=== PATIENT | male | born 1945 | race African-American/Black ===

== ENCOUNTER → 2017-01-01 | Outpatient (CLI) | payer MEDICARE, OTHER | END | disposition home or self-care (01) | LOC: Rad HDHVI 08:56 | PROVIDERS: ATTEND Internal Medicine Cardiovascular Disease | DX: I35.2 Nonrheumatic aortic (valve) stenosis with insufficiency (principal) | CPT/HCPCS: 93306 ==

== ENCOUNTER → 2017-01-05 | Outpatient (CLI) | payer MEDICARE, OTHER ==
[~2017-01-05] VITALS: Ht 180.3 cm; Wt 85.7 kg
[~2017-01-05] MED LIST: ADENOSINE 72 MG in GIVE UN-DILUTED 0 ML IV ONE; ADENOSINE 90 MG/30 ML INJ IV ONE; cloNIDine HCL 0.1 MG TAB ONE
== END | disposition home or self-care (01) ==
LOC: Rad HDHVI 09:17
PROVIDERS: ATTEND Internal Medicine Cardiovascular Disease
DX: I10 Essential (primary) hypertension (principal); I35.0 Nonrheumatic aortic (valve) stenosis; I35.1 Nonrheumatic aortic (valve) insufficiency; E11.9 Type 2 diabetes mellitus without complications
CPT/HCPCS: 78452; 93005; 96374; 96375; A9500; J0153

== ENCOUNTER → 2017-04-27 | Outpatient (CLI) | payer MEDICARE, OTHER ==
[~2017-04-27] MED LIST changes: -ADENOSINE 72 MG in GIVE UN-DILUTED 0 ML IV ONE; -ADENOSINE 90 MG/30 ML INJ IV ONE; +ATEN-60 PO; +ATOR10TA52 PO; +CINA30TA2 PO; +CLOP75TA28 PO; +DOXA2TAB PO; +ISOSTAB OR; +LISI40TA PO; +NIFE90TA30 PO; +SEVE800T10 PO; +SEVE800T8 PO; -cloNIDine HCL 0.1 MG TAB ONE
== END | disposition home or self-care (01) ==
LOC: Rad HDHVI 13:36
PROVIDERS: ATTEND Internal Medicine Cardiovascular Disease
DX: I10 Essential (primary) hypertension (principal)
CPT/HCPCS: 93306

== ENCOUNTER → 2017-05-09 | Outpatient (CLI) | payer MEDICARE, OTHER ==
[~2017-05-09] MED LIST changes: +IOHEXOL 350 MG/ML 100ML IJ ONE; +cloNIDine HCL 0.1 MG TAB ONE; +cloNIDine HCL 0.1 MG TAB PO ONE; +diphenhdrAMINE HCL 50 MG/1 ML VL IV ONE; +diphenhdrAMINE HCL 50 MG/1 ML VL ONE; +methylPREDNISolone SOD SUCC 125 MG/2 ML VL IV ONE; +methylPREDNISolone SOD SUCC 125 MG/2 ML VL ONE
[2017-05-09 10:05] VITALS: BP 214/76
[2017-05-09 13:22] VITALS: BP 201/75
== END | disposition home or self-care (01) ==
LOC: Rad HDHVI 09:04
PROVIDERS: ATTEND Internal Medicine Cardiovascular Disease
DX: K40.90 Unilateral inguinal hernia, without obstruction or gangrene, not specified as recurrent (principal); I70.8 Atherosclerosis of other arteries; I51.7 Cardiomegaly; I73.9 Peripheral vascular disease, unspecified
CPT/HCPCS: 75635; 82565; 96374; 96375; G0463; J1200; J2930; Q9967

== ENCOUNTER → 2017-06-18 | Outpatient (CLI) | payer MEDICARE, OTHER ==
[~2017-06-18] MED LIST changes: -IOHEXOL 350 MG/ML 100ML IJ ONE; -cloNIDine HCL 0.1 MG TAB ONE; -cloNIDine HCL 0.1 MG TAB PO ONE; -diphenhdrAMINE HCL 50 MG/1 ML VL IV ONE; -diphenhdrAMINE HCL 50 MG/1 ML VL ONE; -methylPREDNISolone SOD SUCC 125 MG/2 ML VL IV ONE; -methylPREDNISolone SOD SUCC 125 MG/2 ML VL ONE
[2017-06-18 10:25] VITALS: BP 219/76
[2017-06-18 11:25] VITALS: BP 137/74
[2017-06-18 12:25] LABS: Basophils # (auto) 0 uL; Eosinophils # (auto) 0.2 uL; Eosinophils % (auto) 3.9 % (0.0-7.0); Hematocrit 35.9 % (41.0-53.0); Hemoglobin 11.7 g/dL (13.5-17.5); Lymphocytes # (auto) 0.7 uL; Lymphocytes % (auto) 17.9 % (10.0-50.0); Mean Corpuscular Hemoglobin 30.2 pg (28.0-32.0); Mean Corpuscular Hgb Conc. 32.5 g/dL (32.0-36.0); Mean Corpuscular Volume 92.9 fL (80.0-100.0); Monocytes # (auto) 0.3 uL; Monocytes % (auto) 8.3 % (0.0-12.0); Neutrophils # (auto) 2.8 uL; Neutrophils % (auto) 68.9 % (37.0-80.0); Platelet Count (auto) 191 10^3/uL (140-450); Red Blood Cells 3.87 10^6/uL (4.5-5.90); Red Cell Distribution Width 17.3 % (11.8-14.3); White Blood Cell 4.1 10^3/uL (4.4-10.8)
[2017-06-18 12:37] LABS: Potassium 5.3 mmol/L (3.5-5.1)
[2017-06-18 12:44] LABS: INR 1.03 (0.9-1.15); Partial Thromboplastin Time 28.5 sec (22.64-33.71); Prothrombin Time 11.2 sec (9.37-12.3)
== END | disposition home or self-care (01) ==
LOC: Rad HDHVI 09:58
PROVIDERS: ATTEND Internal Medicine Cardiovascular Disease
DX: Z01.812 Encounter for preprocedural laboratory examination (principal); D64.9 Anemia, unspecified; R79.1 Abnormal coagulation profile; I10 Essential (primary) hypertension
CPT/HCPCS: 36415; 71046; 80048; 85025; 85610; 85730; 93005; G0463

== ENCOUNTER 2017-06-21 08:29 | Inpatient (IN) | payer MEDICARE, OTHER ==
[~2017-06-21] VITALS: Ht 180.3 cm; Wt 62.0 kg
[~2017-06-21 08:29] MED LIST changes: -CLOP75TA28 PO; -ISOSTAB OR; -SEVE800T8 PO
[2017-06-21] MEDS ORDERED: ISOSTAB OR (08:42)
[2017-06-21] MEDS ORDERED: LIDOCAINE 2%HCL (LOCAL ANESTH.) INJ 20ML MDV ONE (09:27)
[2017-06-21] MEDS ORDERED: IOHEXOL 350 MG/ML 100ML IJ ONE (09:27)
[2017-06-21] MEDS ORDERED: ANGIOMAX 250 MG VIAL IV ONE (09:39)
[2017-06-21] MEDS ORDERED: NITROGLYCERIN 5MG/ML 10ML VIAL IV ONE (09:40)
[2017-06-21] MEDS ORDERED: SODIUM CHL 0.9% 50 ML ONE ×2 (09:40→09:43)
[2017-06-21] MEDS ORDERED: MIDAZOLAM HCL 1MG/1ML-2 ML VIAL ONE (09:40)
[2017-06-21] MEDS ORDERED: fentaNYL CITRATE 100 MCG/2 ML VL ONE (09:40)
[2017-06-21] MEDS ORDERED: diphenhdrAMINE HCL 50 MG/1 ML VL ONE ×2 (09:43→09:49)
[2017-06-21] MEDS ORDERED: methylPREDNISolone SOD SUCC 125 MG/2 ML VL ONE (09:43)
[2017-06-21] MEDS ORDERED: IODIXANOL 320MG/ML 100ML BTL IV ONE (09:54)
[2017-06-21] MEDS ORDERED: hydrALAZINE HCL 20 MG/ML VL ONE (10:35)
[2017-06-21] MEDS ORDERED: EPTIFIBATIDE INJ (2MG/ML) 10ML VIAL IV ONE (10:38)
[2017-06-21] MEDS ORDERED: TICAGRELOR 90 MG TAB ONE (11:00)
[2017-06-21] MEDS ORDERED: TICAGRELOR 90 MG TAB PO ONE (11:30)
[2017-06-21] MEDS ORDERED: DOXAZOSIN MESYL 2 MG TAB PO ONE (11:45)
[2017-06-21] MEDS ORDERED: MORPHINE SULFATE 4 MG/ML SYR/VIAL IV PRN (12:45)
[2017-06-21] MEDS ORDERED: NITROGLYCERIN 0.4 MG SL TAB SL PRN (12:45)
[2017-06-21] MEDS ORDERED: ONDANSETRON HCL 4 MG/2 ML VIAL IV PRN (12:45)
[2017-06-21] MEDS ORDERED: MORPHINE SULF INJ 2 MG/ML SYRINGE 1ML IV PRN (12:45)
[2017-06-21] MEDS ORDERED: LORazepam 0.5 MG TAB PO PRN (12:45)
[2017-06-21] MEDS: ISOSORBIDE DINITRATE 10 MG TAB PO SCH (13:30)
[2017-06-21] MEDS: hydrALAZINE HCL 25 MG TAB PO SCH ×2 (13:49→23:09)
[2017-06-21] MEDS: ACETAMINOPHEN 500 MG TAB PO PRN ×3 (13:51→16:02)
[2017-06-21] MEDS: SODIUM CHLOR 0.9% PF (SALINE LOCK) 10ML VIAL IV SCH ×2 (14:05→22:00)
[2017-06-21] MEDS ORDERED: ISOSORBIDE DINITRATE 10 MG TAB PO ONE (14:15)
[2017-06-21] MEDS: HYDROcodone-ACET 5/325MG TAB PO PRN ×2 (14:41→15:59)
[2017-06-21] MEDS ORDERED: cloNIDine HCL 0.1 MG TAB ONE (15:45)
[2017-06-21] MEDS ORDERED: cloNIDine HCL 0.1 MG TAB PO ONE (16:00)
[2017-06-21] MEDS: CALCIUM ACETATE 667 MG CAP PO SCH (17:55)
[2017-06-21] MEDS ORDERED: ISOSORBIDE DINITRATE 10 MG TAB PO SCH (18:00)
[2017-06-21] MEDS ORDERED: SEVE800T8 PO (18:28)
[2017-06-21] MEDS ORDERED: CINA30TA2 PO (18:28)
[2017-06-21 21:58] VITALS: BP 197/78
[2017-06-21] MEDS ORDERED: ATORVASTATIN 20 MG TAB PO SCH (22:00)
[2017-06-21] MEDS: DOXAZOSIN MESYL 2 MG TAB PO SCH (23:08)
[2017-06-21] MEDS: NIFEdipine ER 30 MG TAB PO SCH (23:10)
[2017-06-21] MEDS: TICAGRELOR 90 MG TAB PO SCH (23:30)
[2017-06-22] MEDS: HYDROcodone-ACET 5/325MG TAB PO PRN (00:34)
[2017-06-22 05:05] VITALS: BP 171/68
[2017-06-22] MEDS: hydrALAZINE HCL 25 MG TAB PO SCH ×2 (06:08→14:00)
[2017-06-22] MEDS: ISOSORBIDE DINITRATE 10 MG TAB PO SCH ×2 (06:14→12:57)
[2017-06-22] MEDS: SODIUM CHLOR 0.9% PF (SALINE LOCK) 10ML VIAL IV SCH ×2 (06:16→14:00)
[2017-06-22 08:00] VITALS: BP 130/55
[2017-06-22] MEDS: CALCIUM ACETATE 667 MG CAP PO SCH ×2 (08:21→12:56)
[2017-06-22 08:28] VITALS: BP 130/55
[2017-06-22] MEDS: DOXAZOSIN MESYL 2 MG TAB PO SCH (09:46)
[2017-06-22] MEDS: NIFEdipine ER 30 MG TAB PO SCH (09:47)
[2017-06-22] MEDS ORDERED: LISINOPRIL 20 MG TAB PO SCH (10:00)
[2017-06-22] MEDS ORDERED: METOPROLOL SUCCINATE XL 50 MG TAB PO SCH (10:00)
[2017-06-22 11:46] VITALS: BP 151/66
[2017-06-22 12:01] VITALS: BP 130/55
[2017-06-22] MEDS: TICAGRELOR 90 MG TAB PO SCH (12:55)
== END 2017-06-22 15:00 | disposition home or self-care (01) | DRG 270 ==
LOC: CATH 08:29 → TELE-EAST 08:30
PROVIDERS: ADMIT Internal Medicine Cardiovascular Disease; ATTEND Internal Medicine Cardiovascular Disease
PROC: 047T3ZZ Dilation of Right Peroneal Artery, Percutaneous Approach (ICD-10-PCS; principal; 2017-06-21)
PROC: 3E053PZ Introduction of Platelet Inhibitor into Peripheral Artery, Percutaneous Approach (ICD-10-PCS; 2017-06-21)
PROC: 04CT3ZZ Extirpation of Matter from Right Peroneal Artery, Percutaneous Approach (ICD-10-PCS; 2017-06-21)
PROC: B41G1ZZ Fluoroscopy of Left Lower Extremity Arteries using Low Osmolar Contrast (ICD-10-PCS; 2017-06-21)
PROC: B41F1ZZ Fluoroscopy of Right Lower Extremity Arteries using Low Osmolar Contrast (ICD-10-PCS; 2017-06-21)
DX: I74.3 Embolism and thrombosis of arteries of the lower extremities (principal); N18.6 End stage renal disease; I13.2 Hypertensive heart and chronic kidney disease with heart failure and with stage 5 chronic kidney disease, or end stage renal disease; I50.30 Unspecified diastolic (congestive) heart failure; I70.201 Unspecified atherosclerosis of native arteries of extremities, right leg; K40.90 Unilateral inguinal hernia, without obstruction or gangrene, not specified as recurrent; Z99.2 Dependence on renal dialysis
CPT/HCPCS: 36415; 37229; 71046; 75716; 80048; 82962; 85025; 85610; 85730; 93005; 96373; 99152; 99153; C1769; G0463; J2250; J3490; Q9967

== ENCOUNTER 2017-06-27 18:03 | Inpatient (IN) | payer MEDICARE, OTHER ==
[~2017-06-27] VITALS: Ht 180.3 cm; Wt 74.6 kg
[~2017-06-27 18:03] MED LIST changes: +ISOSTAB OR; -SEVE800T10 PO; +SEVE800T8 PO
[2017-06-27] MEDS ORDERED: ENOXAPARIN SOD 100 MG/1 ML SYRINGE SC ONE (20:15)
[2017-06-27 21:13] LABS: Basophils # (auto) 0 uL; Basophils % (auto) 0.6 % (0.0-2.0); Eosinophils # (auto) 0.4 uL; Eosinophils % (auto) 7.5 % (0.0-7.0); Hematocrit 33.2 % (41.0-53.0); Hemoglobin 10.8 g/dL (13.5-17.5); Lymphocytes # (auto) 0.9 uL; Lymphocytes % (auto) 15.7 % (10.0-50.0); Mean Corpuscular Hemoglobin 30.1 pg (28.0-32.0); Mean Corpuscular Hgb Conc. 32.5 g/dL (32.0-36.0); Mean Corpuscular Volume 92.6 fL (80.0-100.0); Monocytes # (auto) 0.6 uL; Neutrophils # (auto) 3.8 uL; Neutrophils % (auto) 66.2 % (37.0-80.0); Platelet Count (auto) 171 10^3/uL (140-450); Red Blood Cells 3.58 10^6/uL (4.5-5.90); Red Cell Distribution Width 16.1 % (11.8-14.3); White Blood Cell 5.7 10^3/uL (4.4-10.8)
[2017-06-27 21:18] LABS: INR 0.98 (0.9-1.15); Partial Thromboplastin Time 28.5 sec (22.64-33.71); Prothrombin Time 10.7 sec (9.37-12.3)
[2017-06-27 21:26] LABS: Potassium 4.4 mmol/L (3.5-5.1)
[2017-06-27 21:34] LABS: BUN/Creatinine Ratio 6.1; Calcium 9.3 mg/dL (8.5-10.1)
[2017-06-27 21:35] LABS: Albumin 3.5 g/dL (3.4-5.0); Bilirubin, Total 0.4 mg/dL (0.2-1.0); Total Protein 7.4 g/dL (6.4-8.2)
[2017-06-27 22:07] LABS: Magnesium 3.1 mg/dL (1.6-2.6)
[2017-06-27] MEDS ORDERED: TEMAZEPAM 15 MG CAP PO PRN (22:15)
[2017-06-27] MEDS ORDERED: ONDANSETRON HCL 4 MG/2 ML VIAL IV PRN (22:15)
[2017-06-27] MEDS ORDERED: ACETAMINOPHEN 325 MG TAB PO PRN (22:15)
[2017-06-27] MEDS ORDERED: NITROGLYCERIN 0.4 MG SL TAB SL PRN (22:15)
[2017-06-27] MEDS ORDERED: HYDROcodone-ACET 5/325MG TAB PO PRN (22:15)
[2017-06-27] MEDS ORDERED: MORPHINE SULFATE 4 MG/ML SYR/VIAL IV PRN (22:15)
[2017-06-27 23:00] VITALS: BP 146/65
[2017-06-28] MEDS ORDERED: CLOP75TA28 PO (00:25)
[2017-06-28 01:23] LABS: Urine Bacteria FEW /hpf (None Seen); Urine Blood Negative /uL (Negative); Urine Specific Gravity 1.014 (1.001-1.035); Urine WBC 2 /hpf (0 - 3)
[2017-06-28] MEDS: cloNIDine HCL 0.1 MG TAB PO PRN ×2 (05:11→14:40)
[2017-06-28 05:49] VITALS: BP 161/73
[2017-06-28 05:56] LABS: Basophils # (auto) 0 uL; Basophils % (auto) 0.8 % (0.0-2.0); Eosinophils # (auto) 0.3 uL; Eosinophils % (auto) 8.2 % (0.0-7.0); Hematocrit 31.1 % (41.0-53.0); Hemoglobin 10.3 g/dL (13.5-17.5); Lymphocytes # (auto) 0.7 uL; Lymphocytes % (auto) 16.6 % (10.0-50.0); Mean Corpuscular Hemoglobin 30.6 pg (28.0-32.0); Mean Corpuscular Volume 92.5 fL (80.0-100.0); Monocytes # (auto) 0.4 uL; Monocytes % (auto) 9.1 % (0.0-12.0); Neutrophils # (auto) 2.8 uL; Neutrophils % (auto) 65.3 % (37.0-80.0); Platelet Count (auto) 164 10^3/uL (140-450); Red Blood Cells 3.37 10^6/uL (4.5-5.90); Red Cell Distribution Width 15.9 % (11.8-14.3); White Blood Cell 4.2 10^3/uL (4.4-10.8)
[2017-06-28 06:37] LABS: Albumin 3.2 g/dL (3.4-5.0); BUN/Creatinine Ratio 6.2; Bilirubin, Total 0.5 mg/dL (0.2-1.0); Calcium 8.7 mg/dL (8.5-10.1); Potassium 4.2 mmol/L (3.5-5.1); Total Protein 6.7 g/dL (6.4-8.2)
[2017-06-28] MEDS: SEVELAMER 800 MG TAB PO SCH ×3 (08:48→18:00)
[2017-06-28 09:00] VITALS: BP 171/63
[2017-06-28] MEDS: PANTOPRAZOLE 40 MG TAB PO SCH (10:00)
[2017-06-28] MEDS: LISINOPRIL 20 MG TAB PO SCH (10:00)
[2017-06-28] MEDS: DOXAZOSIN MESYL 2 MG TAB PO SCH ×2 (10:00→22:18)
[2017-06-28 12:00] VITALS: BP 191/62
[2017-06-28] MEDS ORDERED: ISOSTAB OR (15:30)
[2017-06-28] MEDS ORDERED: hydrALAZINE HCL 25 MG TAB PO ONE (16:30)
[2017-06-28] MEDS ORDERED: ISOSORBIDE DINITRATE 10 MG TAB PO ONE (16:30)
[2017-06-28] MEDS ORDERED: ENOXAPARIN SOD 100 MG/1 ML SYRINGE SC SCH (20:30)
[2017-06-28] MEDS: ATORVASTATIN 20 MG TAB PO SCH ×2 (22:00→22:19)
[2017-06-28] MEDS: hydrALAZINE HCL 25 MG TAB PO SCH (22:18)
[2017-06-28] MEDS: ISOSORBIDE DINITRATE 10 MG TAB PO SCH (22:19)
[2017-06-28 23:06] VITALS: BP 146/67
[2017-06-29 04:29] VITALS: BP 128/76
[2017-06-29] MEDS ORDERED: ATORVASTATIN 20 MG TAB PO SCH (06:00)
[2017-06-29] MEDS: SEVELAMER 800 MG TAB PO SCH (07:48)
[2017-06-29 09:00] VITALS: BP 208/76
[2017-06-29] MEDS: PANTOPRAZOLE 40 MG TAB PO SCH (09:44)
[2017-06-29] MEDS: DOXAZOSIN MESYL 2 MG TAB PO SCH (09:44)
[2017-06-29] MEDS: ISOSORBIDE DINITRATE 10 MG TAB PO SCH (09:44)
[2017-06-29] MEDS: LISINOPRIL 20 MG TAB PO SCH (09:45)
[2017-06-29] MEDS: hydrALAZINE HCL 25 MG TAB PO SCH (09:45)
[2017-06-29 10:58] VITALS: BP 166/64
[2017-06-29] MEDS: cloNIDine HCL 0.1 MG TAB PO PRN (11:02)
[2017-06-29 11:35] VITALS: BP 158/72
== END 2017-06-29 11:50 | disposition home or self-care (01) | DRG 299 ==
LOC: ER 18:06 → TELE 18:07 → TELE-WESTW 23:16
PROVIDERS: ADMIT Nurse Practitioner; ATTEND Internal Medicine Cardiovascular Disease
PROC: 5A1D70Z Performance of Urinary Filtration, Intermittent, Less than 6 Hours Per Day (ICD-10-PCS; principal; 2017-06-28)
DX: I82.412 Acute embolism and thrombosis of left femoral vein (principal); N18.6 End stage renal disease; I12.0 Hypertensive chronic kidney disease with stage 5 chronic kidney disease or end stage renal disease; D63.8 Anemia in other chronic diseases classified elsewhere; I73.9 Peripheral vascular disease, unspecified; Z82.49 Family history of ischemic heart disease and other diseases of the circulatory system; Z83.3 Family history of diabetes mellitus; Z85.46 Personal history of malignant neoplasm of prostate; Z85.528 Personal history of other malignant neoplasm of kidney; Z99.2 Dependence on renal dialysis; Z79.01 Long term (current) use of anticoagulants; Z88.8 Allergy status to other drugs, medicaments and biological substances; Z88.6 Allergy status to analgesic agent; Z88.0 Allergy status to penicillin; Z91.013 Allergy to seafood
CPT/HCPCS: 36415; 71045; 80053; 81001; 83735; 84484; 85025; 85379; 85610; 85730; 87081; 90935; 93971; 94761; 96372

== ENCOUNTER → 2017-07-04 | Outpatient (CLI) | payer MEDICARE, OTHER ==
[~2017-07-04] MED LIST changes: +CLOP75TA28 PO
== END | disposition home or self-care (01) ==
LOC: Rad HDHVI 10:05
PROVIDERS: ATTEND Internal Medicine Cardiovascular Disease
DX: I82.812 Embolism and thrombosis of superficial veins of left lower extremity (principal); I12.0 Hypertensive chronic kidney disease with stage 5 chronic kidney disease or end stage renal disease; N18.6 End stage renal disease; Z79.01 Long term (current) use of anticoagulants; Z85.46 Personal history of malignant neoplasm of prostate
CPT/HCPCS: 93970

== ENCOUNTER → 2017-12-05 | Outpatient (CLI) | payer MEDICARE, OTHER | END | disposition home or self-care (01) | LOC: Rad HDHVI 13:55 | PROVIDERS: ATTEND Internal Medicine Cardiovascular Disease | DX: I82.409 Acute embolism and thrombosis of unspecified deep veins of unspecified lower extremity (principal) | CPT/HCPCS: 93971 ==

== ENCOUNTER → 2018-07-01 | Outpatient (CLI) | payer MEDICARE, OTHER | END | disposition home or self-care (01) | LOC: Rad HDHVI 09:32 | PROVIDERS: ATTEND Internal Medicine Cardiovascular Disease | DX: M16.11 Unilateral primary osteoarthritis, right hip (principal); M48.07 Spinal stenosis, lumbosacral region; M25.752 Osteophyte, left hip; M25.751 Osteophyte, right hip; M48.10 Ankylosing hyperostosis [Forestier], site unspecified; Q76.49 Other congenital malformations of spine, not associated with scoliosis | CPT/HCPCS: 72131; 72192 ==

== ENCOUNTER → 2018-08-12 | Outpatient (CLI) | payer MEDICARE, OTHER ==
[~2018-08-12] VITALS: Ht 180.3 cm; Wt 83.9 kg
[~2018-08-12] MED LIST changes: +ADENOSINE 70 MG in GIVE UN-DILUTED 0 ML IV ONE; +ADENOSINE 90 MG/30 ML INJ IV ONE
== END | disposition home or self-care (01) ==
LOC: Rad HDHVI 07:40
PROVIDERS: ATTEND Internal Medicine Cardiovascular Disease
DX: R07.9 Chest pain, unspecified (principal); R06.02 Shortness of breath
CPT/HCPCS: 78452; 93005; 96374; 96375; A9500; J0153

== ENCOUNTER 2018-10-22 05:59 | Inpatient (IN) | payer MEDICARE, OTHER ==
[2018-10-18 12:35] LABS: INR 0.98 (0.9-1.15); Partial Thromboplastin Time 21.8 sec (23.64-32.05)
[2018-10-18 12:37] LABS: Urine Bacteria FEW /hpf (None Seen); Urine Blood Negative /uL (Negative); Urine Specific Gravity 1.013 (1.001-1.035); Urine WBC 4 /hpf (0 - 3)
[2018-10-18 12:43] LABS: Basophils # (auto) 0.1 uL; Basophils % (auto) 1.3 % (0.0-2.0); Eosinophils # (auto) 0.1 uL; Eosinophils % (auto) 2.8 % (0.0-7.0); Hematocrit 27.2 % (41.0-53.0); Hemoglobin 9.1 g/dL (13.5-17.5); Lymphocytes # (auto) 0.9 uL; Lymphocytes % (auto) 21.1 % (10.0-50.0); Mean Corpuscular Hemoglobin 30.8 pg (28.0-32.0); Mean Corpuscular Hgb Conc. 33.5 g/dL (32.0-36.0); Mean Corpuscular Volume 91.9 fL (80.0-100.0); Monocytes # (auto) 0.5 uL; Monocytes % (auto) 12.6 % (0.0-12.0); Neutrophils # (auto) 2.7 uL; Neutrophils % (auto) 62.2 % (37.0-80.0); Nucleated Red Blood Cells % 0.1 %; Platelet Count (auto) 181 10^3/uL (140-450); Red Blood Cells 2.96 10^6/uL (4.5-5.90); Red Cell Distribution Width 16.7 % (11.8-14.3); White Blood Cell 4.3 10^3/uL (4.4-10.8)
[2018-10-18 13:15] LABS: Potassium 4.7 mmol/L (3.5-5.1)
[2018-10-18 13:31] LABS: Albumin 3.6 g/dL (3.4-5.0); BUN/Creatinine Ratio 9.3; Bilirubin, Total 0.5 mg/dL (0.2-1.0); Calcium 9.2 mg/dL (8.5-10.1); Total Protein 7.7 g/dL (6.4-8.2)
[~2018-10-22] VITALS: Ht 180.3 cm; Wt 87.3 kg
[~2018-10-22 05:59] MED LIST changes: -ADENOSINE 70 MG in GIVE UN-DILUTED 0 ML IV ONE; -ADENOSINE 90 MG/30 ML INJ IV ONE; -ATEN-60 PO; -CINA30TA2 PO; -CLOP75TA28 PO; +FURO40TA4 PO; +HYDR50TA15 PO; -LISI40TA PO
[2018-10-22] MEDS ORDERED: CLINDAMYCIN 600MG IV 50 ML IV ONE (07:08)
[2018-10-22] MEDS ORDERED: LIDOCAINE 1% HCL (LOCAL ANESTH.) INJ 20ML MDV ONE (07:14)
[2018-10-22] MEDS ORDERED: SUCCINYLCHOLINE CHLORIDE 20 MG/ML 10ML VIAL IV ONE (07:15)
[2018-10-22] MEDS ORDERED: MIDAZOLAM HCL 1MG/1ML-2 ML VIAL ONE (07:28)
[2018-10-22] MEDS ORDERED: ETOMIDATE (2MG/ML) 20ML VIAL IV ONE (07:29)
[2018-10-22] MEDS ORDERED: ROCURONIUM 10MG/ML 10ML VIAL IV ONE (07:29)
[2018-10-22] MEDS ORDERED: METOCLOPRAMIDE HCL 5MG/ml INJ 2ml VIAL ONE (07:33)
[2018-10-22] MEDS ORDERED: fentaNYL CITRATE 100 MCG/2 ML VL ONE (07:42)
[2018-10-22] MEDS ORDERED: NALOXONE HCL 0.4 MG/ML VIAL IV PRN (08:00)
[2018-10-22] MEDS ORDERED: ONDANSETRON HCL 4 MG/2 ML VIAL IV ONE (08:00)
[2018-10-22] MEDS ORDERED: ACCU-CHEK COMFORT CURVE STRIP VI ONE (08:00)
[2018-10-22] MEDS ORDERED: ePHEDrine SULFATE 50 MG/ML AMP ONE (09:25)
[2018-10-22] MEDS ORDERED: SODIUM CHLORIDE LOCK 10 ML ONE (09:25)
[2018-10-22] MEDS ORDERED: GLYCOPYRROLATE 0.2 MG/ML 1ML VIAL ONE (11:05)
[2018-10-22] MEDS ORDERED: NEOSTIGMINE 1 MG/ML INJ (10mg/10ML VIAL) ONE (11:05)
[2018-10-22] MEDS ORDERED: LACTATED RINGER'S 1,000 ML IV SCH (12:03)
[2018-10-22] MEDS: HYDROmorphone HCL 2 MG/ML VL IV PRN ×9 (12:06→21:34)
[2018-10-22] MEDS ORDERED: MORPHINE SULF INJ 2 MG/ML SYRINGE 1ML IV PRN (12:15)
[2018-10-22] MEDS ORDERED: NITROGLYCERIN 0.4 MG SL TAB SL PRN (12:15)
[2018-10-22] MEDS ORDERED: ACETAMINOPHEN 325 MG TAB PO PRN (12:15)
--- NOTE | 2018-10-22 13:10 | NUR ---
Telemetry admit from [facility] BABATUNDETHANIA Howell admitted to Telemetry unit after SBAR received. Patient oriented to TIFFANY VICENTE, RN primary RN, unit, room 271A, bed, and unit policies regarding patient care and visiting hours. Patient now on continuous telemetry monitoring, tele box # 19 and telemetry reading on arrival to unit is sinus rhythm 89. Patient placed on bedside oxygen 2 lpm via nasal cannula, weighed by bedscale and encouraged to call if they need something. All questions and concerns addressed, patient verbalized understanding. Bed in low and locked position, rails up x2, no-slip socks on. Pulses palpable to bilateral dorsalis pedis, incision to left hip clean dry intact. Patient aware of strict flexion and internal rotation precautions. Verbalizes understanding.
[2018-10-22] MEDS: SODIUM CHLOR 0.9% PF (SALINE LOCK) 10ML VIAL/SYR IV SCH ×2 (14:31→22:00)
[2018-10-22 14:48] VITALS: BP 130/58
[2018-10-22 17:00] VITALS: BP_SYST 114; BP_SYST 143; BP_DIAS 51; BP_DIAS 62
[2018-10-22] MEDS: SEVELAMER 800 MG TAB PO SCH (18:19)
[2018-10-22 19:48] LABS: BUN/Creatinine Ratio 8.1; Calcium 8.6 mg/dL (8.5-10.1); Potassium 5.1 mmol/L (3.5-5.1)
--- NOTE | 2018-10-22 20:00 | NUR ---
Opening Shift Note Assumed care of patient, awake and alert. No S/S of distress/SOB or pain. Instructed on POC and to call for assist PRN, will continue to monitor for changes Q1hr and PRN.Left hip dressing with old blood stained noted.
[2018-10-22] MEDS: DOCUSATE SOD 100 MG CAP PO SCH (21:21)
[2018-10-22] MEDS: hydrALAZINE HCL 25 MG TAB PO SCH (21:21)
[2018-10-22] MEDS: DOXAZOSIN MESYL 2 MG TAB PO SCH (21:22)
[2018-10-22 22:00] VITALS: BP 156/74
[2018-10-23] MEDS: HYDROmorphone HCL 2 MG/ML VL IV PRN ×7 (00:45→22:12)
[2018-10-23 04:47] VITALS: BP 119/62
[2018-10-23] MEDS: hydrALAZINE HCL 25 MG TAB PO SCH ×3 (05:35→22:11)
[2018-10-23] MEDS: SODIUM CHLOR 0.9% PF (SALINE LOCK) 10ML VIAL/SYR IV SCH ×3 (05:35→22:12)
[2018-10-23 06:04] LABS: Hematocrit 23.4 % (41.0-53.0)
--- NOTE | 2018-10-23 07:07 | NUR ---
Report given to Eugenia Ireland , patient is resting awaiting to get up by the physical therapist.
--- NOTE | 2018-10-23 07:30 | NUR ---
Opening Shift Note Assumed care of patient, awake and alert. No S/S of distress/SOB or pain. Instructed on POC and to call for assist PRN, will continue to monitor for changes Q1hr and PRN. Bed in low and locked position, rails up x 2, no-slip socks on.
[2018-10-23 08:00] VITALS: BP 143/62
[2018-10-23] MEDS: SEVELAMER 800 MG TAB PO SCH ×3 (08:00→18:21)
[2018-10-23] MEDS: NIFEdipine ER 30 MG TAB PO SCH (10:05)
[2018-10-23] MEDS: DOXAZOSIN MESYL 2 MG TAB PO SCH ×2 (10:05→22:11)
[2018-10-23] MEDS: DOCUSATE SOD 100 MG CAP PO SCH ×2 (10:06→22:10)
--- NOTE | 2018-10-23 11:00 | NUR ---
PHYSICAL THERAPY AT BEDSIDE
[2018-10-23 11:57] VITALS: BP 157/58
--- NOTE | 2018-10-23 12:20 | NUR ---
DR BURROWS AT BEDSIDE CONTINUE WITH PHYSICAL THERAPY AND STRICT HIP PRECAUTIONS.
--- NOTE | 2018-10-23 12:21 | NUR ---
DRESSING CHANGED TO LEFT HIP PER MD ORDERS, USING CLEAN STERILE TECHNIQUE, OLD DRESSING REMOVED, MIN/MOD SANGUENOUS DRAINAGE TO OLD DRESSING, NO ODOR, MARCELLE INTACT AND WOUND EDGES WELL APPROXIMATED. PRIMAPORE PLACED OVER WOUND. PATIENT TOLERATED IT WELL.
--- NOTE | 2018-10-23 13:17 | NUR ---
Patient nausea and vomit at this time, spoke to Dr. Allen received new order, noted and carried it out.
[2018-10-23] MEDS ORDERED: ONDANSETRON HCL 4 MG/2 ML VIAL IV PRN (13:30)
--- NOTE | 2018-10-23 16:09 | NUR ---
ELEVATED BLOOD PRESSURE PATIENT SCHEDULED FOR DIALYSIS TOMORROW, NOTIFIED DR MORIN OF ELEVATED BLOOD PRESSURE, PATIENT IS IN PAIN AT THIS TIME BUT NOT DUE FOR PAIN MEDICATIONS YET, BP 169/76 HR 93. AWAITING ORDERS.
--- NOTE | 2018-10-23 16:57 | NUR ---
IV removal AND IV insertion IV DC'd with clean sterile technique, catheter fully intact. Pressure dressing applied to site. Patient tolerated well. IV access obtained, via clean sterile technique by inserting 22 gauge catheter at left forearm after 2 attempts. IV secured properly. No trauma to site. Patient tolerated well.
[2018-10-23 17:00] VITALS: BP 169/76
--- NOTE | 2018-10-23 19:44 | NUR ---
OPENING NOTE ASSUMED PT CARE FROM DAY SHIFT NURSE. PT IS A/OX4 WITH NO S/S OF DISTRESS OR SOB AND IS LAYING QUIETLY IN BED WITH LEFT LEG STRAIGHT. DISCUSSED WITH PT THE NEED TO MAINTAIN LEG'S STATUS AND SPOKE TO HIM ABOUT PLACING THE WEDGE PILLOW IN BETWEEN HIS LEGS TO MAINTAIN POSITION WHILE HE SLEEPS. PT STATES THAT HE IS IN SOME MILD DISCOMFORT R/T PAIN; SPOKE TO HIM ABOUT THE AVAILABILITY OF PAIN MEDICATIONS. DISCUSSED FURTHER POC WITH PT. SAFETY MEASURES MAINTAINED WITH CALL LIGHT WITHIN REACH, BED IN LOWEST POSITION AND SIDE RAILS UP. WILL CONTINUE TO MONITOR FOR CHANGES Q1HR AND PRN.
[2018-10-23 22:00] VITALS: BP 137/59
[2018-10-23] MEDS: TEMAZEPAM 15 MG CAP PO PRN (23:04)
[2018-10-24] VITALS (12 sets, daily range): BP systolic 136–206; BP diastolic 50–92
[2018-10-24] MEDS: hydrALAZINE HCL 25 MG TAB PO SCH ×3 (05:39→21:09)
[2018-10-24] MEDS: HYDROmorphone HCL 2 MG/ML VL IV PRN ×3 (05:40→14:39)
[2018-10-24] MEDS: SODIUM CHLOR 0.9% PF (SALINE LOCK) 10ML VIAL/SYR IV SCH ×3 (05:42→21:12)
--- NOTE | 2018-10-24 06:25 | NUR ---
SPOKE WITH DIALYSIS NURSE SPOKE WITH DIALYSIS NURSE ON THE PHONE. SHE STATED THAT SHE IS ABOUT 30 MINUTES AWAY AND REQUESTED THE HEMODIALYSIS ORDERS [facility] LABS TO BE PRINTED AND PLACED IN CHART.
[2018-10-24] MEDS ORDERED: SODIUM CHL 0.9% 1000 ML BAG XX ONE (07:00)
--- NOTE | 2018-10-24 07:30 | NUR ---
Opening Shift Note Assumed care of patient, awake and alert. No S/S of distress/SOB or pain. Instructed on POC and to call for assist PRN, will continue to monitor for changes Q1hr and PRN. bed in low and locked position, rails up x2, no-slip socks on. ophthalmic tech at bedside and dialysis initiated.
[2018-10-24] MEDS: SEVELAMER 800 MG TAB PO SCH ×3 (08:00→18:03)
[2018-10-24 09:20] LABS: Hemoglobin 7.3 g/dL (13.5-17.5)
[2018-10-24 09:23] LABS: Hematocrit 21.3 % (41.0-53.0)
--- NOTE | 2018-10-24 10:15 | NUR ---
DR MORIN AT BEDSIDE NEW ORDERS ADDED
[2018-10-24] MEDS ORDERED: PANTOPRAZOLE 40 MG TAB PO ONE (10:30)
[2018-10-24] MEDS: DOXAZOSIN MESYL 2 MG TAB PO SCH ×2 (10:47→21:10)
[2018-10-24] MEDS: NIFEdipine ER 30 MG TAB PO SCH (10:48)
[2018-10-24] MEDS: DOCUSATE SOD 100 MG CAP PO SCH ×2 (10:48→21:09)
--- NOTE | 2018-10-24 10:50 | NUR ---
DIALYSIS COMPLETED 3L REMOVED, PATIENT TOLERATED IT WELL, BP 159/62 HR 96. PRESSURE DRESSING TO FISTULA CLEAN DRY INTACT. WILL CONTINUE TO MONITOR PATIENT. MORNING MEDICATIONS ADMINISTERED.
--- NOTE | 2018-10-24 11:25 | NUR ---
PHYSICAL THERAPY AT BEDSIDE PATIENT UP TO CHAIR
--- NOTE | 2018-10-24 12:10 | NUR ---
DR BURROWS AT BEDSIDE
--- NOTE | 2018-10-24 14:03 | NUR ---
PHYSICAL THERAPY PAGED PATIENT ASSISTED BACK TO BED
--- NOTE | 2018-10-24 18:28 | NUR ---
PAGE TO DRY CLEANER HAND HOSPITALIST PATIENT COMPLAINING OF ACID REFLUX AND BP IS ELEVATED TO 206/92 HR 100. PATIENT RECEIVED DIALYSIS TODAY AND JUST COMPLETED ONE UNIT OF PRBC. AWAITING CALL BACK FOR ORDERS.
--- NOTE | 2018-10-24 19:02 | NUR ---
BP RECHECK REPOSITIONED PATIENT FOR COMFORT, BP 166/75 HR 105. STILL AWAITING CALL BACK, WILL ENDORE Addendum: 10/24/18 at 1903 by TIFFANY VICENTE RN RN WILL ENDORSE TO ROSS CARRIER DRIVER NURSE.
--- NOTE | 2018-10-24 20:00 | NUR ---
Opening Shift Note Assumed care of patient, awake and alert x4. No S/S of distress/SOB or pain, dressing to left hip cdi. Instructed on POC and to call for assistance PRN, will continue to monitor for changes Q1hr and PRN. BP reassessed 169/69 HR 105, will continue to monitor
[2018-10-24] MEDS: TEMAZEPAM 15 MG CAP PO PRN (21:09)
--- NOTE | 2018-10-24 22:25 | NUR ---
BP recheck BP recheck 140/57 HR 86. No sob or distress on 2L NC
[2018-10-25] VITALS (9 sets, daily range): BP systolic 111–170; BP diastolic 46–70
--- NOTE | 2018-10-25 01:11 | NUR ---
Blood Transfusion ended. Patient tolerated well. No signs or symptoms of distress.
[2018-10-25] MEDS: HYDROmorphone HCL 2 MG/ML VL IV PRN ×2 (04:00→22:07)
--- NOTE | 2018-10-25 04:00 | NUR ---
Rounds Patient awake and alert. No S/S of distress/SOB on 2L NC, patient co hip pain, medicated as ordered. Will continue to monitor changes q1hr and PRN. Call light within reach
[2018-10-25] MEDS: SODIUM CHLOR 0.9% PF (SALINE LOCK) 10ML VIAL/SYR IV SCH ×3 (06:28→21:14)
[2018-10-25] MEDS: hydrALAZINE HCL 25 MG TAB PO SCH ×3 (06:31→21:12)
--- NOTE | 2018-10-25 06:39 | NUR ---
IS Patient using IS sitting on chair, patient reached 1000ml, encouraged to use frequently, educated on use. Pt verbalized understanding, instructed to call when getting out of bed and to assist back to bed. Call light within reach
--- NOTE | 2018-10-25 07:00 | NUR ---
MD Called/paged Hospitalist called re:request for med for c/o heartburn after meals . Waiting for call back. Continue care.
--- NOTE | 2018-10-25 07:30 | NUR ---
Opening Shift Note Assumed care of patient, awake, alert, and oriented x4. No S/S of distress/SOB or pain. IV is in left forearm 22 gauge asymptomatic, intact, patent, and saline locked. Patient has AV fistula located on right upper arm. Bed is locked and in lowest position, call light is within reach, SCD's are in place on bilateral lower legs, abductor pillow in place to prevent adduction of left hip and leg. Instructed on POC and to call for assist PRN, and patient verbalized understanding. Will continue to monitor for changes Q1hr and PRN.
--- NOTE | 2018-10-25 08:18 | NUR ---
Paged Dr. Allen, Hospitalist. Awaiting Reply.
--- NOTE | 2018-10-25 08:19 | NUR ---
Hospitalist Returned Call Received call back from Dr. Allen, Hospitalist; new orders received.
--- NOTE | 2018-10-25 08:20 | NUR ---
Patient Fall Was told patient was lying on the floor; went into patient room and patient was lying on floor on left side. Patient reports that he was sitting in his chair eating his breakfast, and went to get up and back into bed on his own, and at this time his left leg gave out causing him to fall. Patient states that he thinks he hit his head on the left side when he fell. Patient has had recent hip surgery on left hip. Patient was helped back into bed and vital signs were taken. Telemetry reading is normal sinus rhythm at 93. Informed charge nurse, Chris. Yessenia Allen, Hospitalist, and received new orders for heat CT and Left Hip X-ray. Placed phone call to , Heidi, and let her know what happened. stated that she would be coming to the hospital today. Will continue to monitor patient Q30 minutes.
--- NOTE | 2018-10-25 08:45 | NUR ---
Patient taken to Xray/CT via hospital bed. No distress noted at time of departure.
--- NOTE | 2018-10-25 09:20 | NUR ---
Patient returned from Xray/CT via hospital bed. No distress noted at time of arrival. Put patient back on SCD's on bilateral lower legs. Will continue to monitor patient Q30 min.
[2018-10-25] MEDS: DOXAZOSIN MESYL 2 MG TAB PO SCH ×2 (09:31→21:11)
[2018-10-25] MEDS: SEVELAMER 800 MG TAB PO SCH ×3 (09:31→18:56)
[2018-10-25] MEDS: DOCUSATE SOD 100 MG CAP PO SCH ×2 (09:31→21:12)
[2018-10-25] MEDS: PANTOPRAZOLE 40 MG TAB PO SCH (09:32)
[2018-10-25] MEDS: NIFEdipine ER 30 MG TAB PO SCH (09:33)
[2018-10-25 10:48] LABS: Hematocrit 20.7 % (41.0-53.0)
--- NOTE | 2018-10-25 11:51 | NUR ---
PT Hold PT during morning visit as per DOMINIQUE Handley. Addendum: 10/25/18 at 1152 by ZORA OCONNELL PTT Amended: Links added.
--- NOTE | 2018-10-25 13:15 | NUR ---
PT Patient refused to be OOB during afternoon PT visit and stated he already sat on the chair this morning for more than an hour and will skip PT today. Addendum: 10/25/18 at 1316 by ZORA OCONNELL PTT Amended: Links added.
--- NOTE | 2018-10-25 15:51 | NUR ---
assessment Patient is a 72 year old male who is alert and oriented. Prior to admission patient lived home with his Lakia and functioned independently. Patient has a cane for home use. Patient is on service with [facility]. Patient wants to resume with [facility] on discharge. Patients PCP is Dr De Leon. Patient is on dialysis with [facility] on T TH Sat at 415am. Patient fell and fractured his hip. Patient wants to return home on discharge. Patients Lakia wants patient to go to rehab. They are discussing and will let MD know what patient decides prior to discharge. If patient returns home he will need a fww prior to discharge. Addendum: 10/25/18 at 1555 by Chitra BUSH Amended: Links added.
--- NOTE | 2018-10-25 16:01 | NUR ---
Blood transfusion started at 1600. Vitals are 157/63 mmHg, heart rate 101, respirations 13 breaths per minute, oral temperature is 99.8 degrees f, and oxygen saturation is 94% on 2L nasal cannula.
--- NOTE | 2018-10-25 19:27 | NUR ---
Endorsed care to Janice night auditor RN.
[2018-10-25] MEDS: HYDROcodone-ACET 5/325MG TAB PO PRN (20:07)
--- NOTE | 2018-10-25 20:07 | NUR ---
Opening Shift Note Assumed care of patient, awake and alert x4. No S/S of distress/SOB on room air, patient complaining of 7/10 hip pain, medicated for pain. Instructed on POC and to call for assistance PRN, will continue to monitor for changes Q1hr and PRN.
[2018-10-25] MEDS: TEMAZEPAM 15 MG CAP PO PRN (21:12)
--- NOTE | 2018-10-25 22:07 | NUR ---
Pain Management Pt medicated for continuing hip pain, patient medicated per MD order, placed on 2LNC. Repositioned for comfort, pt refuses to use adduction pillow, pt instructed to avoid rotation, patient placed on SCDs bilaterally, call light within reach. Bed alarm on
--- NOTE | 2018-10-25 22:50 | NUR ---
Dressing Change Dressing changed with aseptic technique, no drainage, minimal bruising, patient tolerated well.
[2018-10-26 04:55] VITALS: BP 160/71
[2018-10-26] MEDS: hydrALAZINE HCL 25 MG TAB PO SCH ×3 (05:07→21:44)
[2018-10-26] MEDS: HYDROmorphone HCL 2 MG/ML VL IV PRN (05:08)
[2018-10-26 06:00] VITALS: BP 137/49
[2018-10-26] MEDS: SODIUM CHLOR 0.9% PF (SALINE LOCK) 10ML VIAL/SYR IV SCH ×3 (06:00→21:44)
[2018-10-26] MEDS ORDERED: SODIUM CHL 0.9% 1000 ML BAG XX ONE (07:00)
--- NOTE | 2018-10-26 07:00 | NUR ---
medical aides teacher at bedside to begin dialysis.
--- NOTE | 2018-10-26 07:20 | NUR ---
Opening Shift Note Assumed care of patient, lying semi-fowlers supine, with eyes closed, but answering questions. No S/S of distress/SOB or pain. IV is in left forearm 22 gauge asymptomatic, intact, patent, and saline locked. SCD's are on bilateral lower legs, and abduction pillow is in place in between legs. artificial stone setter is at bedside; dialysis began at 0700. Bed is locked and in lowest position and call light is within reach, and bed alarm is on. Instructed on POC and to call for assist PRN, will continue to monitor for changes Q1hr and PRN.
[2018-10-26 08:00] VITALS: BP 169/59
[2018-10-26] MEDS: SEVELAMER 800 MG TAB PO SCH ×3 (08:00→13:00)
[2018-10-26] MEDS: DOXAZOSIN MESYL 2 MG TAB PO SCH ×2 (11:00→21:44)
[2018-10-26] MEDS: PANTOPRAZOLE 40 MG TAB PO SCH (11:01)
[2018-10-26] MEDS: HYDROcodone-ACET 5/325MG TAB PO PRN ×2 (11:01→21:42)
[2018-10-26] MEDS: DOCUSATE SOD 100 MG CAP PO SCH ×2 (11:01→21:44)
[2018-10-26] MEDS: NIFEdipine ER 30 MG TAB PO SCH (11:02)
[2018-10-26 11:59] VITALS: BP 111/65
[2018-10-26 12:22] LABS: Hematocrit 25.3 % (41.0-53.0); Hemoglobin 8.6 g/dL (13.5-17.5)
[2018-10-26 12:37] LABS: % Iron Saturation 26.7 % (20-55)
--- NOTE | 2018-10-26 15:09 | NUR ---
Nutrition Assessment Notes please see attached link for complete assessment Est. Needs BW [id number] kcal (27-30 kcal/kgBW), 108-117 gms pro (1.2-1.3 gms/kgBW r/t HD). Will continue to monitor pertinent labs and reassess nutrient need prn Addendum: 10/26/18 at [address] Amended: Links added.
[2018-10-26 17:00] VITALS: BP 104/49
[2018-10-26] MEDS ORDERED: EPOETIN ALFA 10,000 UNIT/1 ML VIAL SC ONE (21:00)
[2018-10-26] MEDS: TEMAZEPAM 15 MG CAP PO PRN (21:41)
[2018-10-26 22:00] VITALS: BP 126/50
--- NOTE | 2018-10-27 04:40 | NUR ---
TOTAL LINEN CHANGE PROVIDED. NEW GOWN PROVIDED TO PATIENT. PATIENT TURNED AND REPOSITIONED WITH PILLOW SLIGHTLY TO RIGHT SIDE. ABDUCTION PILLOW REMAINS IN PLACE, SCD'S TO BLE REMAIN IN PLACE.
[2018-10-27] MEDS: HYDROcodone-ACET 5/325MG TAB PO PRN ×2 (04:48→09:52)
[2018-10-27 05:16] VITALS: BP 130/73
--- NOTE | 2018-10-27 06:00 | NUR ---
DRESSING CHANGE TO LEFT HIP PER MD ORDERS. OLD DRESSING REMOVED WITH SCANT DRIED SANGUINEOUS DRAINAGE NOTED. INCISION IS WELL APPROXIMATED,MARCELLE INTACT. MINIMAL BRUISING NOTED. WOUND CLEANSED WITH NS AND PATTED DRY WITH STERILE GAUZE. PRIMAPORE DRESSING PLACED OVER WOUND. PATIENT TOLERATED WELL. Addendum: 10/27/18 at 0611 by Peyton Russo RN DRAINAGE WAS SEROUS.
[2018-10-27] MEDS: SODIUM CHLOR 0.9% PF (SALINE LOCK) 10ML VIAL/SYR IV SCH ×3 (06:07→22:19)
[2018-10-27] MEDS: hydrALAZINE HCL 25 MG TAB PO SCH ×3 (06:07→22:19)
--- NOTE | 2018-10-27 07:30 | NUR ---
Opening Shift Note Assumed care of patient, awake, alert, and oriented x4. No S/S of distress/SOB, but patient is reporting pain in the left hip of 6/10. IV is in left forearm 22 gauge asymptomatic, intact, patent, and saline locked. Bed is locked and in lowest position and call light is within reach. Instructed on POC and to call for assist PRN, and patient verbalized understanding. Will continue to monitor for changes Q1hr and PRN.
--- NOTE | 2018-10-27 08:00 | NUR ---
Dr. Allen, Hospitalist, at bedside. New orders received.
[2018-10-27] MEDS ORDERED: MORPHINE SULF INJ 2 MG/ML SYRINGE 1ML IV PRN (08:15)
[2018-10-27 08:34] VITALS: BP 136/58
[2018-10-27] MEDS: SEVELAMER 800 MG TAB PO SCH ×3 (08:39→18:00)
[2018-10-27] MEDS: LACTULOSE 20Gm/30ML SOLN PO SCH ×2 (08:39→22:00)
--- NOTE | 2018-10-27 08:45 | NUR ---
Physical therapy at bedside.
--- NOTE | 2018-10-27 09:00 | NUR ---
Dr. Dill, Orthopedic Surgeon, at bedside.
[2018-10-27] MEDS: DOCUSATE SOD 100 MG CAP PO SCH ×2 (09:48→22:18)
[2018-10-27] MEDS: PANTOPRAZOLE 40 MG TAB PO SCH (09:48)
[2018-10-27] MEDS: DOXAZOSIN MESYL 2 MG TAB PO SCH ×2 (09:48→22:18)
[2018-10-27] MEDS: NIFEdipine ER 30 MG TAB PO SCH (09:49)
[2018-10-27 10:29] LABS: Hematocrit 26.5 % (41.0-53.0); Hemoglobin 8.8 g/dL (13.5-17.5)
[2018-10-27 13:00] VITALS: BP 132/62
[2018-10-27] MEDS ORDERED: FLEET ENEMA(ADULT) 135 ML PR ONE (14:30)
[2018-10-27 16:51] VITALS: BP 129/52
[2018-10-27] MEDS: HYDROmorphone HCL 2 MG/ML VL IV PRN ×2 (17:44→22:20)
--- NOTE | 2018-10-27 19:00 | NUR ---
Endorsed care to athletic coordinator RNPeyton.
--- NOTE | 2018-10-27 20:30 | NUR ---
BOWEL MOVEMENT PATIENT UP TO BSC WITH MIN-MOD ASSIST, PATIENT HAD BROWN LIQUID BM, RETURNED TO BED WITHOUT INCIDENT. PATIENT TOLERATED WELL, BED ALARM PLACED ON. CALL LIGHT WITHIN REACH.
[2018-10-27 22:00] VITALS: BP 125/53
[2018-10-27] MEDS: TEMAZEPAM 15 MG CAP PO PRN (22:18)
[2018-10-28] VITALS (9 sets, daily range): BP systolic 122–147; BP diastolic 44–71
[2018-10-28] MEDS: SODIUM CHLOR 0.9% PF (SALINE LOCK) 10ML VIAL/SYR IV SCH ×3 (05:55→21:38)
[2018-10-28] MEDS: hydrALAZINE HCL 25 MG TAB PO SCH ×3 (05:55→21:49)
[2018-10-28] MEDS: HYDROcodone-ACET 5/325MG TAB PO PRN ×2 (05:57→19:55)
[2018-10-28 06:06] LABS: Anion Gap 13 (5-15); BUN/Creatinine Ratio 7.6; Blood Urea Nitrogen 76 mg/dL (7-18); Calcium 8.3 mg/dL (8.5-10.1); Carbon Dioxide 26 mmol/L (21-32); Chloride 96 mmol/L (98-107); GFR African American 7 mL/min; GFR Non-African American 6 mL/min; Glucose 106 mg/dL (74-106); Potassium 4.6 mmol/L (3.5-5.1); Sodium 135 mmol/L (136-145)
--- NOTE | 2018-10-28 06:45 | NUR ---
DRESSING CHANGE TO LEFT HIP PER MD ORDERS. OLD DRESSING REMOVED WITH NO DRAINAGE NOTED. INCISION IS WELL APPROXIMATED,MARCELLE INTACT. MINIMAL BRUISING NOTED. WOUND CLEANSED WITH NS AND PATTED DRY WITH STERILE GAUZE. PRIMAPORE DRESSING PLACED OVER WOUND. PATIENT TOLERATED WELL.
--- NOTE | 2018-10-28 07:15 | NUR ---
Opening Shift Note Assumed care of patient, awake, alert, and oriented x4. No S/S of distress/SOB, but patient reporting left hip pain of 3/10. IV is in left forearm and is asymptomatic, intact, patent, and is saline locked. Bed is locked and in lowest position and call light is within reach. Instructed on POC and to call for assist PRN, and patient verbalized understanding. Will continue to monitor for changes Q1hr and PRN.
[2018-10-28 07:21] LABS: Hemoglobin 7.3 g/dL (13.5-17.5)
[2018-10-28 07:24] LABS: Hematocrit 21.3 % (41.0-53.0)
--- NOTE | 2018-10-28 09:00 | NUR ---
Patient ambulated to chair with moderate assistance. Patient tolerated well. Will continue to monitor patient Q10 minutes while in chair.
--- NOTE | 2018-10-28 09:00 | NUR ---
Spoke with Chitra in social science manager about Bower evaluation today; awaiting reply for an estimated time of evaluation.
[2018-10-28 10:40] LABS: Hemoglobin 7.7 g/dL (13.5-17.5)
[2018-10-28 10:41] LABS: Hematocrit 22.9 % (41.0-53.0)
[2018-10-28] MEDS: SEVELAMER 800 MG TAB PO SCH ×3 (10:56→18:33)
[2018-10-28] MEDS: LACTULOSE 20Gm/30ML SOLN PO SCH ×2 (10:56→21:49)
[2018-10-28] MEDS: DOCUSATE SOD 100 MG CAP PO SCH ×2 (10:56→21:50)
[2018-10-28] MEDS: PANTOPRAZOLE 40 MG TAB PO SCH (10:56)
[2018-10-28] MEDS: DOXAZOSIN MESYL 2 MG TAB PO SCH ×2 (10:56→21:50)
[2018-10-28] MEDS: NIFEdipine ER 30 MG TAB PO SCH (10:57)
[2018-10-28] MEDS: HYDROmorphone HCL 2 MG/ML VL IV PRN ×3 (11:10→21:50)
--- NOTE | 2018-10-28 15:15 | NUR ---
Physical therapy at bedside. Patient ambulated to hallway with front wheeled walker with minimum assistance; patient tolerated well.
--- NOTE | 2018-10-28 15:44 | NUR ---
Blood transfusion began at 1540. No distress noted at this time. Will remain at bedside for the first 30 minutes of transfusion.
--- NOTE | 2018-10-28 16:29 | NUR ---
Per consult for [facility] evaluation. Contacted [facility] Ph: ) Fax: ) faxed medical records. Per Rachelle from [facility] Pt has been accepted to room [address] Araujo upon d/c plan. Addendum: 10/28/18 at 1634 by MARYJANE MANE Amended: Links added.
--- NOTE | 2018-10-28 19:45 | NUR ---
OPENING SHIFT NOTE Assumed care of patient. A&O x4. Currently on room air with no s/s of SOB or distress. Patient reports 7/10 pain to the left hip at this time. Pain management options discussed with patient. SCDs in place on bilateral lower extremities. Hip adductor in place. Dressing to left hip is CDI. [place] are intact and incision edges are well approximated. No s/s of infection noted. 22 gauge IV in left forearm flushed with 10ml NS. No s/s of irritation or infiltration. Patient tolerated well. POC discussed with patient, who verbalizes understanding. Bed is in low locked position and side rails up x2. Call carter is within reach. Patient encouraged to call for assistance when needed. Will continue to monitor PRN.
--- NOTE | 2018-10-28 20:00 | NUR ---
GEOMETRY TUTOR reported oral temperature of 99.9 f. [place] removed from patient and temperature in room lowered. Will recheck temperature.
--- NOTE | 2018-10-28 21:30 | NUR ---
Temperature rechecked and is 98.1. Will continue to monitor PRN.
[2018-10-29] VITALS (9 sets, daily range): BP systolic 123–184; BP diastolic 50–88
--- NOTE | 2018-10-29 02:54 | NUR ---
WRAPPER LEAF INSPECTOR Received call from [employer] stating patient is off Tele. Leads replaced and monitor checked. Continuous monitoring is restored and patient is currently in sinus rhythm at 77bpm with a first degree heart block. Will continue to monitor PRN.
[2018-10-29] MEDS: HYDROmorphone HCL 2 MG/ML VL IV PRN ×3 (04:02→16:13)
[2018-10-29 05:31] LABS: Hemoglobin 8.2 g/dL (13.5-17.5)
[2018-10-29 05:37] LABS: Hematocrit 23.9 % (41.0-53.0)
[2018-10-29] MEDS: SODIUM CHLOR 0.9% PF (SALINE LOCK) 10ML VIAL/SYR IV SCH ×2 (06:10→16:16)
[2018-10-29] MEDS: hydrALAZINE HCL 25 MG TAB PO SCH ×2 (06:43→14:00)
--- NOTE | 2018-10-29 07:30 | NUR ---
Opening Shift Note Assumed care of patient, awake and alert sitting upright eating breakfast. No S/S of distress/SOB or pain. Instructed on POC and to call for assist PRN, will continue to monitor for changes Q1hr and PRN. Call light within reach. Incentive spirometer Patient demonstrated correct use of I. S. machine. Patient set self goal to perform I. S. approx 5-10 times per waking hour. Transfer to chair Transferred patient to chair with mod standby assist. Patient tolerated well. Call light placed within patient's reach.
[2018-10-29] MEDS: SEVELAMER 800 MG TAB PO SCH ×2 (08:00→11:40)
[2018-10-29] MEDS ORDERED: SODIUM CHL 0.9% 1000 ML BAG XX ONE (08:30)
[2018-10-29] MEDS ORDERED: HYDROcodone-ACET 5/325MG TAB PO PRN (09:00)
--- NOTE | 2018-10-29 09:00 | NUR ---
Dialysis today Received call from MD Allen. updated primary RN on POC with new orders. Patient to receive dialysis today with 1 unit PRBCs. Blood product to be administered during dialysis.
[2018-10-29] MEDS: NIFEdipine ER 30 MG TAB PO SCH (10:00)
[2018-10-29] MEDS: DOXAZOSIN MESYL 2 MG TAB PO SCH (10:00)
[2018-10-29] MEDS: PANTOPRAZOLE 40 MG TAB PO SCH (10:00)
[2018-10-29] MEDS: LACTULOSE 20Gm/30ML SOLN PO SCH (10:17)
[2018-10-29] MEDS: DOCUSATE SOD 100 MG CAP PO SCH (10:17)
--- NOTE | 2018-10-29 10:27 | NUR ---
BACK IN TO BED ASSISTED PATIENT WITH MOD ASSISTANCE BACK TO BED. TOLERATED WELL. MEDICATED DUE TO PAIN
--- NOTE | 2018-10-29 12:54 | NUR ---
industrial chemicals supervisor at bedside
--- NOTE | 2018-10-29 13:03 | NUR ---
Ortho cleared for DC Dr. Dill updating on POC. Per MD patient is cleared by ortho for discharge. Per MD patient can have nataly removed on Sunday11/01/18 Per MD Abductor pillow is to only be used when patient is sleeping MD at bedside changing LT hip dressing. Per MD due to patient being a dialysis patient, No Lovenox needs to be ordered for discharge.
--- NOTE | 2018-10-29 15:07 | NUR ---
TRANSPORTATION PER SS [facility] IS ON WILL CALL FOR TRANSPORTATION
--- NOTE | 2018-10-29 15:23 | NUR ---
Contacted [facility] Ph: ) fax: ) faxed medical records. Per Jerri from [facility] Pt will be on ( will call). Informed RN Giulia to call [facility] and set up transportation when Pt is ready for apple picking supervisor.
--- NOTE | 2018-10-29 16:05 | NUR ---
Dialysis complete Dialysis complete. 3L removed
--- NOTE | 2018-10-29 17:30 | NUR ---
[facility] CARDENAS Called [facility] and spoke to DOMINIQUE Howard.
--- NOTE | 2018-10-29 18:11 | NUR ---
TELE MONITOR REMOVED TELE MONITOR REMOVED AND RETURNED TO [facility] UNIT
--- NOTE | 2018-10-29 18:11 | NUR ---
IV removal IV DC'd with clean sterile technique, catheter fully intact. Pressure dressing applied to site. Patient tolerated well.
--- NOTE | 2018-10-29 19:11 | NUR ---
Discharge Transfers Patient is being transferred to [facility]... Patient is to follow up with accepting doctor at the receiving facility. Discharge instructions given as ordered. Encourage to follow up with PMD as instructed. All questions and concerns addressed. Patient verbalized understanding. Medication reconciliation form completed and copy given to patient. IV removed with catheter intact, pressure dressing applied. Telemetry unit returned to ICU. Patient taken out of facility via [facility] with .
[2018-10-29] MEDS ORDERED: EPOETIN ALFA 10,000 UNIT/1 ML VIAL SC ONE (21:00)
== END 2018-10-29 19:11 | DRG 469 ==
LOC: SUR 05:59 → TELE-WESTW 13:21
PROVIDERS: ADMIT Orthopaedic Surgery; ATTEND Internal Medicine
PROC: 0KXP0ZZ Transfer Left Hip Muscle, Open Approach (ICD-10-PCS; 2018-10-22)
PROC: 0MBM0ZZ Excision of Left Hip Bursa and Ligament, Open Approach (ICD-10-PCS; 2018-10-22)
PROC: 30233N1 Transfusion of Nonautologous Red Blood Cells into Peripheral Vein, Percutaneous Approach (ICD-10-PCS; 2018-10-22)
PROC: 0SG Lower Joints, Fusion (ICD-10-PCS; 2018-10-22)
PROC: 30233N1 Transfusion of Nonautologous Red Blood Cells into Peripheral Vein, Percutaneous Approach (ICD-10-PCS; 2018-10-22)
PROC: 0SRB0JA Replacement of Left Hip Joint with Synthetic Substitute, Uncemented, Open Approach (ICD-10-PCS; principal; 2018-10-22 07:29)
PROC: 5A1D70Z Performance of Urinary Filtration, Intermittent, Less than 6 Hours Per Day (ICD-10-PCS; 2018-10-24)
PROC: 5A1D70Z Performance of Urinary Filtration, Intermittent, Less than 6 Hours Per Day (ICD-10-PCS; 2018-10-26)
PROC: 5A1D70Z Performance of Urinary Filtration, Intermittent, Less than 6 Hours Per Day (ICD-10-PCS; 2018-10-29)
DX: M16.12 Unilateral primary osteoarthritis, left hip (principal); N18.6 End stage renal disease; I13.2 Hypertensive heart and chronic kidney disease with heart failure and with stage 5 chronic kidney disease, or end stage renal disease; Z96.642 Presence of left artificial hip joint; D63.8 Anemia in other chronic diseases classified elsewhere; M70.62 Trochanteric bursitis, left hip; W07.XXXA Fall from chair, initial encounter; M48.00 Spinal stenosis, site unspecified; N40.0 Benign prostatic hyperplasia without lower urinary tract symptoms; G47.33 Obstructive sleep apnea (adult) (pediatric); I50.9 Heart failure, unspecified; E78.00 Pure hypercholesterolemia, unspecified; E11.51 Type 2 diabetes mellitus with diabetic peripheral angiopathy without gangrene; E11.22 Type 2 diabetes mellitus with diabetic chronic kidney disease; Z80.1 Family history of malignant neoplasm of trachea, bronchus and lung; Z86.718 Personal history of other venous thrombosis and embolism; Z79.01 Long term (current) use of anticoagulants; Z82.49 Family history of ischemic heart disease and other diseases of the circulatory system; Z99.2 Dependence on renal dialysis; Z83.3 Family history of diabetes mellitus; Z79.899 Other long term (current) drug therapy; Z88.8 Allergy status to other drugs, medicaments and biological substances; Z88.6 Allergy status to analgesic agent; Z91.041 Radiographic dye allergy status; Z88.0 Allergy status to penicillin; Z91.013 Allergy to seafood
CPT/HCPCS: 36415; 70450; 73501; 73502; 80048; 80053; 81001; 82728; 82962; 83540; 83550; 85014; 85018; 85025; 85610; 85730; 86703; 86803; 86850; 86900; 86901; 86920; 87081; 88302; 90935; 97116; 97530; C1776; G0378; J0330; J0885; J1642; J2001; J2250; J2405; J3490

== ENCOUNTER → 2019-09-22 | Outpatient (CLI) | payer MEDICARE, OTHER ==
[~2019-09-22] VITALS: Ht 180.3 cm; Wt 79.4 kg
[~2019-09-22] MED LIST changes: +ADENOSINE 67 MG in GIVE UN-DILUTED 0 ML IV ONE; +ADENOSINE 90 MG/30 ML INJ IV ONE; -FURO40TA4 PO; -NIFE90TA30 PO; +NIFE90TA49 PO
== END | disposition home or self-care (01) ==
LOC: Rad HDHVI 12:46
PROVIDERS: ATTEND Internal Medicine Cardiovascular Disease
DX: I25.10 Atherosclerotic heart disease of native coronary artery without angina pectoris (principal); I10 Essential (primary) hypertension; E78.00 Pure hypercholesterolemia, unspecified; E78.5 Hyperlipidemia, unspecified
CPT/HCPCS: 78452; 93005; 93306; 96374; 96375; A9500; J0153